=== PATIENT | male | born 1960 | race Caucasian/White ===

== ENCOUNTER 2018-07-09 01:10 | Emergency (ER) | payer OTHER ==
[~2018-07-09] VITALS: Ht 180.3 cm; Wt 92.9 kg
[~2018-07-09 01:10] MED LIST: EMTR1TAB8 PO; GLIP10TA13 PO; METF500T17 PO
[2018-07-09 01:12] VITALS: BP 147/92
--- NOTE | 2018-07-09 01:53 | NUR ---
PT TO ROOM AND PLACED IN GOWN AWAITING ERP AND ORDERS.
== END 2018-07-09 04:14 | disposition home or self-care (01) ==
LOC: ED 04:00
DX: S52.502A Unspecified fracture of the lower end of left radius, initial encounter for closed fracture (principal); S52.602A Unspecified fracture of lower end of left ulna, initial encounter for closed fracture; S01.112A Laceration without foreign body of left eyelid and periocular area, initial encounter; Z21 Asymptomatic human immunodeficiency virus [HIV] infection status; W00.0XXA Fall on same level due to ice and snow, initial encounter; Y93.89 Activity, other specified; Y92.009 Unspecified place in unspecified non-institutional (private) residence as the place of occurrence of the external cause; Y99.8 Other external cause status
CPT/HCPCS: 12051; 29125; 99284